=== PATIENT | male | born 1995 | race Caucasian/White ===

== ENCOUNTER 2017-07-11 09:47 | Emergency (ER) | payer OTHER ==
[2017-07-11 09:52] VITALS: RESP 18; TEMP 98.2
--- NOTE | 2017-07-11 10:02 | EDPHY ---
H & P Smoking Status: Never smoked Time Seen by Provider: 07/11/17 09:58 HPI/ROS: HPI: Mr. Luis dang is a pleasant adult 22-year-old male who Chief Complaint: Left thumb cut Location: Pad of left thumb Quality: Laceration Duration: 30 minutes prior to arrival Signs and Symptoms: Positive bleeding, no radiation, no numbness, no weakness, no decreased range of motion, no swelling Timing: Acute Severity: Moderate Context: Patient was at work using a table saw and accidentally slipped cutting his left thumb. It immediately started to bleed. Patient applied pressure the bleeding continued. Left hand dominant. Reports last tetanus booster was given last summer. Modifying Factors: Direct pressure transient relief Comment: ROS: Eyes: No blurred vision Respiratory: No shortness of breath, no cough Cardiovascular: No chest pain Gastrointestinal: No nausea, no vomiting no diarrhea Genitourinary: No dysuria Extremities: No myalgias Neurologic: No weakness, no numbness Skin: No rashes Hematologic: No bruising, no bleeding MEDICAL/SURGICAL HISTORY: Generally healthy. Denies history of asthma, hypertension, GERD, diabetes. Denies any surgical history. (Inga Crawford) Social History: Employed. (Inga Crawford) Physical Exam: CONSTITUTIONAL: Young adult white male, cooperative, awake and alert, no obvious distress HEENT: Atraumatic and normocephalic, PERRL, EOMI. Tympanic membranes clear. Oropharynx clear, no exudate and moist pink mucosa. Airway patent. No lymphadenopathy. No meningismus. Cardiovascular: Normal S1/S2, regular rate, regular rhythm, without murmur rub or gallop. PULMONARY/CHEST: Symmetrical and nontender. Clear to auscultation bilaterally Good air movement. No accessory muscle usage. ABDOMEN: Soft, nondistended, nontender, no rebound, no guarding, no peritoneal signs, no masses or organomegaly. No CVAT. EXTREMITIES: 2/2 pulses, no clubbing, no cyanosis or edema. Left thumb on the pad shows the U shaped deep laceration; sparing the nail and joint space. Flexion and extension and light touch sensation intact. NEUROLOGICAL: no focal neuro deficits. GCS 15. SKIN: Warm and dry, no erythema. no rash. Good capillary refill. (Inga Crawford) Constitutional: Initial Vital Signs Temperature (C) 36.8 C 07/11/17 09:50 Heart Rate 69 07/11/17 09:50 Respiratory Rate 18 07/11/17 09:50 Blood Pressure 124/79 H 07/11/17 09:50 O2 Sat (%) 99 07/11/17 09:50 O2 Delivery Mode Room Air Allergies/Adverse Reactions: No Known Allergies Allergy (Unverified 07/11/17 09:52) Home Medications: Medication Instructions Recorded NK [No Known Home Meds] 07/11/17 Medical Decision Making - Diagnostics Imaging Results: Imaging Impressions Hand X-Ray 07/11/17 09:58 Impression: 1. No definite acute fracture. 2. No evidence of left thumb fracture. Procedures: Procedure: Laceration repair. Verbal consent was obtained from the patient. The deep simple laceration on the left thumb pad was anesthetized in the usual fashion. The wound was irrigated, draped and explored to its base with a gloved finger. There were no deep structures involved. No tendon injury was identified. The wound was repaired with # 14 , 6-0 Prolene, simple interrupted pattern. The wound was explored and did not show any foreign bodies. Good hemostasis was achieved and patient tolerated procedure well The procedure was performed by myself. (Inga Crawford) ED Course/Re-evaluation: Hand x-ray, wound care, laceration repair ordered Tetanus up-to-date. Hand x-ray reviewed by myself does not show any fracture dislocation, show some soft tissue changes directly over where the laceration is present No signs of neurovascular compromise, fracture, dislocation, tendon injury, nerve injury. xeroform, 4x4, gauze placed and then patient was placed in a finger splint. (Inga Crawford) The patient was evaluated and managed by the physician surveyor's assistant. I have reviewed this chart and I agree with the findings and plan of care as documented , as indicated by my signature. I am the secondary supervising physician. ( Missy Killian) Departure - Departure Disposition: Home, Routine, Self-Care Clinical Impression: Laceration of thumb without complication Qualifiers: Encounter type: initial encounter Laterality: left Qualified Code(s): S61.012A - Laceration without foreign body of left thumb without damage to nail, initial encounter Condition: Good Instructions: Care For Your Stitches (ED), Stitches Removal (ED), Finger Laceration (ED) Additional Instructions: Patient is to stay in splint and keep dressing on for 48 hours. After 48 hours patient may remove dressing and wash the area with mild soap and water and pat dry. Sutures need to be removed in 7-10 days. Referrals: NONE *PRIMARY CARE P,. [Primary Care Provider] - As per Instructions [facility],. [Clinic] - As per Instructions Marcos Wilson MD [Medical Doctor] - 5-7 days, call for appt.
[2017-07-11 11:41] VITALS: BP 121/68; PULSE 57; O2SAT 97
== END 2017-07-11 11:39 | disposition home or self-care (01) ==
PROC: 0HQGXZZ Repair Left Hand Skin, External Approach (ICD-10-PCS; principal; 2017-07-11)
DX: S61.012A Laceration without foreign body of left thumb without damage to nail, initial encounter (principal); W27.0XXA Contact with workbench tool, initial encounter; Y99.0 Civilian activity done for income or pay
CPT/HCPCS: L3925

== ENCOUNTER 2018-08-03 11:41 | Emergency (ER) | payer OTHER ==
--- NOTE | 2018-08-03 12:10 | EDPHY ---
General Time Seen by Provider: 08/03/18 12:09 Narrative: CHIEF COMPLAINT: Finger laceration HISTORY OF PRESENT ILLNESS: Patient presents with complaints of finger laceration. 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 This involves the palmar side of left middle finger, middle and distal phalanx. He had moderate bleeding and moderate to severe pain with palpation. Improved at rest. Does not radiate. He has not attempted any range of motion. He has some tingling but no numbness. No injury to the palm of the hand or elsewhere. Tetanus is up-to-date less than 2 years ago. No use of anticoagulants. Right -hand dominant. TIME OF INJURY: Less than 1 hr ago TETANUS STATUS: Less than 2 years ago MEDICAL/SURGICAL/SOCIAL HISTORY: Uncomplicated. REVIEW OF SYSTEMS: Ten systems reviewed and are negative unless otherwise noted in the HPI EXAMINATION General Appearance: Alert, no distress Head: normocephalic, atraumatic Cardiovascular: Symmetric radial pulses 2+. Brisk cap refill the fingers of the left hand. Neurological: A&O, 2 point sensory symmetric, interossei strength symmetric Skin: Warm and dry, no rash. There is complex laceration of left middle finger , palmar side involving the middle and distal phalanges measuring 6 cm. This does spanning the PIP joint. There is maceration of both wound edges. There is no injury to the flexor superficialis or flexor profundus. No pulsatile bleeding. No foreign body evident. Extremities: Tenderness of the left middle finger involving the laceration. He does retain full flexion extension including superficialis and profundus. Interossei range of motion is symmetric. DIFFERENTIAL DIAGNOSES: Including but not limited to laceration, complex laceration, laceration with deep tissue injury MDM: 12:10 p.m. Laceration to the palmar side of the left middle finger including the middle distal phalanx. There is flexion of the superficialis. Difficult to fully assess the profundus due to bleeding and discomfort. I have administered a digital block and will re-evaluate. 12:45 p.m. Wound has been irrigated and I have re-evaluated. There is no injury to the flexor apparatus. No foreign body. No pulsatile bleeding. X-rays negative for any foreign body or fracture. 1:30 p.m. Laceration has been repaired. This was a complicated laceration but did approximate well. Small areas of tissue excisional debridement necessary. He has been placed in nonadherent dressing with finger splint. We discussed strict wound care and ED precautions. We discussed wound re-evaluation in 48 hr. We discussed follow up with hand surgeon for definitive care and to worker' s compensation Clinic as well. I have answered all his questions. He is provided prescription for Keflex prophylaxis and pain medication. Discharged home stable condition PROCEDURE: Laceration repair Consent: Verbal Location: Left middle finger, palmar, middle and distal phalanges Length of repair: 6 cm Complexity: Complex Layer involvement: 2 layer Anesthesia: Digital block Irrigation: Extensive Debridement: 2 cm Procedure description: Following good anesthesia, the wound was copiously irrigated. Wound bed was explored with a sterile glove, and there is no foreign body noted. Wound borders were approximated well with good hemostasis. Tolerated well without complication. Suture/Staple material: Subcutaneous layer: 4-0 Vicryl, 3 simple interrupted sutures. Cutaneous layer: 5-0 Prolene, 12 simple interrupted sutures Wound care: Routine as discussed Suture/Staple removal: 10-14 Days SUPERVISION: This patient was independently evaluated without direct involvement of or examination by the attending physician. ED Precautions: Worsening pain. Erythema, edema, cyanosis, pallor, paresthesia or anesthesia. - History Smoking Status: Never smoked - Objective Vital Signs: Initial Vital Signs Temperature (C) 98.1 F 08/03/18 11:49 Heart Rate 65 08/03/18 11:49 Respiratory Rate 18 08/03/18 11:49 Blood Pressure 116/60 08/03/18 11:49 O2 Sat (%) 96 08/03/18 11:49 O2 Delivery Mode Room Air Allergies/Adverse Reactions: No Known Allergies Allergy (Verified 08/03/18 11:48) Home Medications: Medication Instructions Recorded Cephalexin [Keflex (*)] 500 mg PO QID #40 cap 08/03/18 oxyCODONE HCL/ACETAMINOPHEN 1 each PO Q4-6PRN PRN #7 tablet 08/03/18 [Percocet 5-325 mg Tablet] Departure - Departure Disposition: Home, Routine, Self-Care Clinical Impression: Laceration of left middle finger with complication Condition: Good Instructions: Laceration (ED) Additional Instructions: 1. Thin layer of bacitracin once daily for the next 3-5 days 2. Keep the wound covered while showering for the next 3 days 3. Keep the current dressing in place for 48 hr and then change once daily.. Keep your splint in place at all times except when changing the dressing 4. Return here for suture removal in 10-14 days 5. Return here for signs of infection as discussed including warmth, redness, fever, drainage from the site 6. Follow up with worker's compensation Clinic and hand surgeon for definitive care 7. Do not submerge the wound in any water, hot tub, swimming pool until sutures removed Referrals: Bryan Ibarra MD [Medical Doctor] - As per Instructions Stand Alone Forms: Work Comp Follow Up Prescriptions: Cephalexin [Keflex (*)] 500 mg PO QID #40 cap oxyCODONE HCL/ACETAMINOPHEN [Percocet 5-325 mg Tablet] 1 each PO Q4-6PRN PRN #7 tablet PRN Reason: Pain, Breakthrough
[2018-08-03 13:52] VITALS: BP 142/75
== END 2018-08-03 14:00 | disposition home or self-care (01) ==
PROC: 0HQGXZZ Repair Left Hand Skin, External Approach (ICD-10-PCS; principal; 2018-08-03)
DX: S61.213A Laceration without foreign body of left middle finger without damage to nail, initial encounter (principal); Y28.8XXA Contact with other sharp object, undetermined intent, initial encounter; Y93.G1 Activity, food preparation and clean up; Y92.9 Unspecified place or not applicable; Y99.9 Unspecified external cause status
CPT/HCPCS: L3925